=== PATIENT | female | born 1965 | race Caucasian/White ===

== ENCOUNTER 2023-06-26 23:03 | Inpatient (IN) | payer OTHER ==
[2023-06-27] MEDS ORDERED: LACTATED RINGERS SOLUTION 1000 ML INFUS.BAG IV ONE ×2 (01:01→04:52)
[2023-06-27] MEDS ORDERED: SUCRALFATE 1 GM TABLET (FP) PO ONE (01:01)
[2023-06-27] MEDS ORDERED: MAG HYDROX/AL HYDROX/SIMETH -MYLANTA- ORAL SUSPENSION PO ONE (01:01)
[2023-06-27] MEDS ORDERED: ACETAMINOPHEN 1000 MG/100 ML BAG IVPB ONE (01:01)
[2023-06-27] MEDS ORDERED: FAMOTIDINE 20 MG/50 ML IVPB 20 MG/50 ML MG IVPB ONE ×2 (01:01→01:27)
[2023-06-27] MEDS ORDERED: ACETAMINOPHEN INJECTION 100 ML IVPB ONE ×2 (01:27→12:53)
[2023-06-27] MEDS ORDERED: SUCRALFATE 1 GM TABLET (FP) ONE (01:27)
[2023-06-27] MEDS ORDERED: MAG HYDROX/AL HYDROX/SIMETH 30 ML UNIT-DOSE CUP ONE (01:27)
[2023-06-27 02:33] LABS: BASO % 0.2 % (0-2.0); EOS % 0.5 % (0-4.5); HEMATOCRIT 36.4 % (32.4-45.2); HEMOGLOBIN 12.2 GM/dL (10.7-15.3); LYMPH % 3.3 % (8-40); MCH 32.2 pg (25.7-33.7); MCHC 33.6 g/dl (32.0-36.0); MEAN CELL VOLUME 95.8 fl (80-96); MEAN PLT VOLUME 7.4 fl (7.5-11.1); MONO % 6.1 % (3.8-10.2); NEUT % 89.9 % (42.8-82.8); PLATELET COUNT 296 10^3/uL (134-434); RDW 15.2 % (11.6-15.6); WHITE BLOOD COUNT 11.6 K/mm3 (4.0-10.0)
[2023-06-27 02:37] LABS: EPI CELLS 4 /uL (0-25.1); HYALINE CASTS 0 /uL (0-3.1); URINE APPEARANCE CLEAR; URINE BACTERIA 15 /uL (0-1359); URINE BILIRUBIN NEGATIVE (NEGATIVE); URINE COLOR YELLOW; URINE GLUCOSE (UA) NEGATIVE (NEGATIVE); URINE KETONE NEGATIVE (NEGATIVE); URINE LEUK ESTERASE TRACE (NEGATIVE); URINE NITRITE NEGATIVE (NEGATIVE); URINE PROTEIN NEGATIVE (NEGATIVE); URINE RBC 42 /uL (0-23.9); URINE UROBILINOGEN 0.2 mg/dL (0.2-1.0); URINE WBC 12 /uL (0-25.8)
[2023-06-27 02:40] LABS: INR 1.08 (0.83-1.09); PROTHROMBIN TIME (PATIENT) 12.5 SEC (9.7-13.0)
[2023-06-27 02:43] LABS: ACTIVATED PTT 29.8 SECONDS (25.2-36.5)
[2023-06-27 02:54] LABS: POTASSIUM 4.7 mmol/L (3.5-5.1)
[2023-06-27 02:55] LABS: ALBUMIN 3.6 g/dl (3.4-5.0); CALCIUM 8.8 mg/dL (8.5-10.1)
[2023-06-27 02:56] LABS: BLOOD UREA NITROGEN 27.6 mg/dL (7-18)
[2023-06-27 02:58] LABS: CREATININE 0.9 mg/dL (0.55-1.3)
[2023-06-27 03:01] LABS: BILIRUBIN,TOTAL 0.5 mg/dL (0.2-1); TOT PROT 7.1 g/dl (6.4-8.2)
[2023-06-27] MEDS ORDERED: morphine SULFATE 4 MG/ML VIAL IVPUSH ONE (04:01)
[2023-06-27] MEDS ORDERED: CEFTRIAXONE 2 GM-D5W BAG 2 GM/50 ML BAG IVPB ONE (06:10)
[2023-06-27 06:12] LABS: MAGNESIUM 1.3 mg/dL (1.8-2.4)
[2023-06-27] MEDS ORDERED: CEFTRIAXONE 2 GM/100 ML BAG IVPB ONE (06:18)
[2023-06-27] MEDS ORDERED: MAGNESIUM SULF 50% (8.12 MEQ/2 ML-1 GM VIAL) IVPB ONE (06:19)
[2023-06-27] MEDS ORDERED: CEFTRIAXONE 2 GM in DEXTROSE 5%-WATER 100 ML IVPB ONE (06:32)
[2023-06-27] MEDS: DEXTROSE 5%-0.45% SALINE 1,000 ML IV SCH ×2 (06:51→16:32)
[2023-06-27] MEDS ORDERED: MAGNESIUM SULFATE IN WATER 2 GM/50 ML IVPB IVPB ONE ×2 (07:53→16:23)
[2023-06-27] MEDS ORDERED: ACETAMINOPHEN 1000 MG/100 ML BAG IVPB PRN (09:00)
[2023-06-27] MEDS: ACETAMINOPHEN 1000 MG/100 ML BAG IVPB PRN ×2 (12:20→18:35)
[2023-06-27 14:52] LABS: N-TERMINAL BNP 322.6 pg/ml (5-125)
[2023-06-27 17:07] VITALS: BMI 12.4
[2023-06-27] MEDS ORDERED: MELATONIN 5 MG TABLETS PO ONE (20:48)
[2023-06-28] MEDS: ACETAMINOPHEN 1000 MG/100 ML BAG IVPB PRN ×2 (00:46→06:16)
[2023-06-28] MEDS ORDERED: KETOROLAC TROMETHAMINE 15 MG/ML VIAL IVPUSH ONE (00:56)
[2023-06-28] MEDS: DEXTROSE 5%-0.45% SALINE 1,000 ML IV SCH (06:42)
[2023-06-28] MEDS: CEFTRIAXONE 2 GM in DEXTROSE 5%-WATER 100 ML IVPB SCH (09:38)
[2023-06-28] MEDS: KETOROLAC TROMETHAMINE 30 MG/1 ML VIAL IVPUSH PRN ×3 (09:39→21:32)
[2023-06-28] MEDS: ACETAMINOPHEN 325 MG TABLET (FP) PO PRN ×2 (12:02→20:11)
[2023-06-28] MEDS: DOCUSATE SODIUM 100 MG CAPSULE (FP) PO SCH ×2 (15:28→21:32)
[2023-06-28] MEDS: MELATONIN 5 MG TABLETS PO PRN (23:56)
[2023-06-29] MEDS: ACETAMINOPHEN 325 MG TABLET (FP) PO PRN ×2 (04:17→16:35)
[2023-06-29] MEDS: KETOROLAC TROMETHAMINE 30 MG/1 ML VIAL IVPUSH PRN ×3 (06:00→21:43)
[2023-06-29] MEDS: DEXTROSE 5%-0.45% SALINE 1,000 ML IV SCH (09:11)
[2023-06-29] MEDS: CEFTRIAXONE 2 GM in DEXTROSE 5%-WATER 100 ML IVPB SCH (09:12)
[2023-06-29] MEDS: DOCUSATE SODIUM 100 MG CAPSULE (FP) PO SCH ×3 (09:12→21:44)
[2023-06-29 09:24] LABS: POTASSIUM 3.7 mmol/L (3.5-5.1)
[2023-06-29 09:55] LABS: BLOOD UREA NITROGEN 12.3 mg/dL (7-18); CALCIUM 8.3 mg/dL (8.5-10.1); CREATININE 0.8 mg/dL (0.55-1.3); MAGNESIUM 1.9 mg/dL (1.8-2.4)
[2023-06-29 09:57] LABS: BILIRUBIN,TOTAL 0.3 mg/dL (0.2-1)
[2023-06-29 10:07] LABS: ALBUMIN 2.8 g/dl (3.4-5.0)
[2023-06-29 14:59] VITALS: RESP 18
[2023-06-29] MEDS: MELATONIN 5 MG TABLETS PO PRN (21:44)
[2023-06-30] MEDS: DOCUSATE SODIUM 100 MG CAPSULE (FP) PO SCH ×2 (06:06→13:40)
[2023-06-30] MEDS: ACETAMINOPHEN 325 MG TABLET (FP) PO PRN ×2 (06:06→13:40)
[2023-06-30] MEDS: CEFTRIAXONE 2 GM in DEXTROSE 5%-WATER 100 ML IVPB SCH (09:23)
[2023-06-30 15:07] VITALS: BP 130/90; PULSE 80; TEMP 98.5
== END 2023-06-30 15:45 | disposition home or self-care (01) | DRG 244 ==
LOC: JER 23:03 → JERBED 06-27 04:53 → J5S 06-27 16:09
PROVIDERS: ADMIT Internal Medicine; ATTEND Student in an Organized Health Care Education/Training Program
DX: K57.32 Diverticulitis of large intestine without perforation or abscess without bleeding (principal); E78.5 Hyperlipidemia, unspecified; F41.9 Anxiety disorder, unspecified; I48.92 Unspecified atrial flutter; E83.42 Hypomagnesemia; R00.2 Palpitations
CPT/HCPCS: 0241U-QW; 36415; 71046-TC-FY; 74177-TC; 76705-TC; 80053; 80061; 81003; 83036; 83690; 83735; 83880; 84100; 84443; 84484; 85025; 85610; 85730; 87040; 87086; 93005; 93010; 93225; 93226; 93306-TC; 94660; 99285-25